=== PATIENT | male | born 1970 | race African-American/Black ===

== ENCOUNTER 2019-02-12 23:45 | Inpatient (IN) | payer OTHER ==
[~2019-02-12] VITALS: Ht 175.3 cm; Wt 90.1 kg
[2019-02-13] VITALS (13 sets, daily range): BP systolic 135–169; BP diastolic 67–97
[2019-02-13] MEDS ORDERED: hydrALAZINE INJ 20 MG/ML VIAL IV ONE (01:00)
--- NOTE | 2019-02-13 02:03 | REP ---
Clinical: Hypertension . Comparison: None . Findings: The mediastinum and cardiac silhouette are stable and within normal limits for portable technique. The lung gaviria are clear without acute consolidation, effusion, or pneumothorax. Skeletal structures are intact. Small flecks of metallic foreign body material noted uncertain etiology or significance. Impression: No acute cardiopulmonary process appreciated. Electronically Signed by Arun Serrano MD 02/13/2019 01:55 A
[2019-02-13] MEDS ORDERED: LABETALOL HCL 100 MG/20 ML VIAL IV STA ×2 (02:26→03:35)
[2019-02-13] MEDS ORDERED: LABETALOL 100 MG TAB PO ONE (02:30)
[2019-02-13 02:45] LABS: HEMATOCRIT 42.5 % (42.0-52.0); HEMOGLOBIN 14.2 g/dl (13.5-17.5); MEAN CORPUSCULAR HEMOGLOBIN 30.1 pg (27.0-33.0); MEAN CORPUSCULAR HGB CONC 33.4 g/dl (32.0-36.5); MEAN CORPUSCULAR VOLUME 90.2 fl (80.0-96.0); PLATELET COUNT, AUTOMATED 175 10^3/uL (150-450); RED BLOOD COUNT 4.71 10^6/uL (4.30-6.10); WHITE BLOOD COUNT 7.1 10^3/uL (4.0-10.0)
--- NOTE | 2019-02-13 02:55 | REPVR ---
PROCEDURE INFORMATION: Exam: CT Head Without Contrast Exam date and time: 02/13/2019 1:43 AM Clinical history: 49 years old, male; Pain; Headache not specified; Additional info: Hypertensive urgency TECHNIQUE: Imaging protocol: Computed tomography of the head without contrast. Radiation optimization: All CT scans at this facility use at least one of these dose optimization techniques: automated exposure control; mA and/or kV adjustment per patient size (includes targeted exams where dose is matched to clinical indication); or iterative reconstruction. COMPARISON: No relevant prior studies available. FINDINGS: Brain: Streaking artifact limits evaluation of the left cerebral hemisphere and left cerebellar lobe. Otherwise, there is no visualized acute intracranial hemorrhage or acute territorial type infarct. No intracranial mass effect. Midline shift: There is no midline shift. Ventricles: No ventriculomegaly. Bones/joints: The calvarium demonstrates no evidence for a depressed fracture. Sinuses: Mucosal thickening/effusions within scattered ethmoid air cells. There is an air-fluid level within the right sphenoid sinus. Mastoid air cells: No mastoid effusion. Soft tissues: Multiple metallic foreign bodies are identified within the left side of the scalp, left ear, left periauricular region, and soft tissues of the left upper neck posteriorly. IMPRESSION: 1. Streaking artifact limits evaluation of the left cerebral hemisphere and left cerebellar lobe. Otherwise, there is no visualized acute intracranial hemorrhage or acute territorial type infarct. 2. Multiple metallic foreign bodies are identified within the left side of the scalp, left ear, left periauricular region, and soft tissues of the left upper neck posteriorly. 3. Paranasal sinus disease. Electronically signed by: Winston Bai On 02/13/2019 02:55:44 AM
[2019-02-13 03:21] LABS: CK-MB VALUE MASS < 1.0 NG/ML (<3.6); CPK CREATINE PHOSPHOKINASE 303 U/L (39-308); MB/CK RELATIVE INDEX 0.33 (< OR =4); TROPONIN I < 0.02 NG/ML (< 0.10)
[2019-02-13] MEDS ORDERED: IBUPROFEN 600 MG TAB PO ONE (04:00)
[2019-02-13] MEDS ORDERED: ATEN50TA2 PO (04:17)
[2019-02-13] MEDS ORDERED: COSO1SOL3 OU (04:17)
[2019-02-13] MEDS ORDERED: AMLO10TA5 PO (04:17)
[2019-02-13] MEDS ORDERED: MELO15TA28 PO (04:17)
[2019-02-13] MEDS ORDERED: ASPIRIN 81 MG CHEW TABLET PO ONE (04:30)
[2019-02-13] MEDS ORDERED: ACETAMINOPHEN 650MG ER TAB (TYLENOL ARTHRITIS) PO PRN (04:30)
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
[2019-02-13 05:23] LABS: ALBUMIN 3.8 GM/DL (3.2-5.2); ALT/SGPT 20 U/L (12-78); BILIRUBIN,TOTAL 0.3 MG/DL (0.2-1.0); BLOOD UREA NITROGEN 11 MG/DL (7-18); CALCIUM LEVEL 8.3 MG/DL (8.5-10.1); CARBON DIOXIDE LEVEL 27 MEQ/L (21-32); CHLORIDE LEVEL 107 MEQ/L (98-107); CREATININE FOR GFR 1.26 MG/DL (0.70-1.30); GLOMERULAR FILTRATION RATE > 60.0 (>60); GLUCOSE, FASTING 89 MG/DL (70-100); POTASSIUM SERUM 3.3 MEQ/L (3.5-5.1); SODIUM LEVEL 142 MEQ/L (136-145); TOTAL PROTEIN 7.2 GM/DL (6.4-8.2); TROPONIN I < 0.02 NG/ML (< 0.10)
[2019-02-13] MEDS ORDERED: LABETALOL HCL 100 MG/20 ML VIAL IV PRN (05:45)
[2019-02-13] MEDS ORDERED: POTASSIUM CHLORIDE 10 MEQ SR TABLET PO ONE (08:00)
[2019-02-13] MEDS: ENOXAPARIN 40 MG/0.4 ML SYRINGE (J1650) SC SCH (08:07)
[2019-02-13] MEDS: amLODIPine 10 MG TAB PO SCH (08:08)
[2019-02-13] MEDS: ATENOLOL 50 MG TAB PO SCH ×2 (08:08→20:24)
[2019-02-13 08:29] LABS: CHOLESTEROL LEVEL 167 MG/DL (<200); CHOLESTEROL RISK RATIO 4.911 (<5); HDL CHOLESTEROL 34 MG/DL (>40); LDL CHOLESTEROL 104 MG/DL (<100); NON-HDL-C 133 MG/DL; TRIGLYCERIDES LEVEL 147 MG/DL (<150)
[2019-02-13 08:49] LABS: HEMOGLOBIN A1c 4.7 %
[2019-02-13] MEDS ORDERED: LISINOPRIL 5 MG TAB PO SCH (09:00)
[2019-02-13 09:38] LABS: CPK CREATINE PHOSPHOKINASE 242 U/L (39-308); MB/CK RELATIVE INDEX 0.41 (< OR =4); TROPONIN I < 0.02 NG/ML (< 0.10)
[2019-02-13] MEDS: COSOPT OCUMETER PLUS 10ML (DORZOLAMIDE/TIMOLOL) OU SCH ×2 (10:41→20:24)
[2019-02-14] VITALS (11 sets, daily range): BP systolic 92–172; BP diastolic 51–91
--- NOTE | 2019-02-14 00:02 | ECGEPIP ---
[facility] - ED Test Date: 2019-02-13 Pat Name: LULÚ ZAZUETA Department: Room: [place] [address] Gender: Male Licensed Massage Therapist: GUZMAN : 1970 Requested By: Ladarius Kumar Order Number: [id number] Reading MD: Ladarius Umana Measurements Intervals [place] Rate: 79 P: 63 GA: 170 QRS: -36 QRSD: 84 T: -18 QT: 394 QTc: 453 Interpretive Statements SINUS RHYTHM POSSIBLE LEFT ATRIAL ENLARGEMENT LEFT AXIS DEVIATION NO PRIORS FOR COMPARISON Electronically Signed on 02-14-2019 0:01:27 EDT by Ladarius Umana
[2019-02-14 05:51] LABS: HEMATOCRIT 40.3 % (42.0-52.0); HEMOGLOBIN 13.6 g/dl (13.5-17.5); MEAN CORPUSCULAR HGB CONC 33.7 g/dl (32.0-36.5); PLATELET COUNT, AUTOMATED 182 10^3/uL (150-450); RED BLOOD COUNT 4.53 10^6/uL (4.30-6.10)
[2019-02-14 06:07] LABS: BLOOD UREA NITROGEN 14 MG/DL (7-18); CALCIUM LEVEL 8.6 MG/DL (8.5-10.1); CARBON DIOXIDE LEVEL 28 MEQ/L (21-32); CHLORIDE LEVEL 111 MEQ/L (98-107); GLOMERULAR FILTRATION RATE > 60.0 (>60); GLUCOSE, FASTING 82 MG/DL (70-100); MAGNESIUM LEVEL 1.9 MG/DL (1.8-2.4); POTASSIUM SERUM 3.6 MEQ/L (3.5-5.1); SODIUM LEVEL 142 MEQ/L (136-145)
[2019-02-14] MEDS ORDERED: POTASSIUM CHLORIDE 10 MEQ SR TABLET PO ONE (08:00)
[2019-02-14] MEDS: ENOXAPARIN 40 MG/0.4 ML SYRINGE (J1650) SC SCH (08:30)
[2019-02-14] MEDS: ATENOLOL 50 MG TAB PO SCH ×2 (08:31→21:08)
[2019-02-14] MEDS: amLODIPine 10 MG TAB PO SCH (08:31)
[2019-02-14] MEDS: COSOPT OCUMETER PLUS 10ML (DORZOLAMIDE/TIMOLOL) OU SCH ×2 (08:32→21:08)
[2019-02-14] MEDS ORDERED: SLF 3 ML SYR IV PRN (13:15)
[2019-02-14] MEDS: SLF 3 ML SYR IV SCH ×2 (14:40→21:09)
--- NOTE | 2019-02-14 15:50 | IPNPDOC ---
Text Note Date of Service The patient was seen on 02/14/19. NOTE Subjective: Patient complains of mild headache 4 out of 10. He denies fever, chills, nausea, vomiting, shortness of breath, diarrhea or dysuria Objective: NAD HEENT: PERRLA, EOMI, no JVD CV: S1-S2 Chest: Clear to auscultation bilaterally Abdomen: Nontender, nondistended Extremities: No leg swelling no cyanosis Neuro: Nonfocal, cranial nerves from 2 through 12 intact Assessment and plan Patient is 49 years old male with past history of hypertension, glaucoma, chronic back pain presented to the hospital with hypertensive emergency Hypertensive emergency Resolved Blood pressure under control I discontinued lisinopril, in [place] bob inhibitors usually not effective. Chlorthalidone could be an option Chest pain Resolved Troponin was negative EKG did not show acute ischemic changes Glaucoma -Continue dorzolamide/timolol YESSENIA Creatinine increased today I discontinued lisinopril VS,Fishbone, I+O VS, Fishbone, I+O Laboratory Tests 02/14/19 05:30 Red Blood Count 4.53, Mean Corpuscular Volume 89.0, Mean Corpuscular Hemoglobin 30.0, Mean Corpuscular Hemoglobin Concent 33.7, Red Cell Distribution Width 12.9, Calcium Level 8.6 Vital Signs Date Time Temp Pulse Resp B/P (MAP) Pulse Ox O2 Delivery O2 Flow Rate FiO2 02/14/19 12:00 98.0 58 18 172/86 (114) 98 02/13/19 08:15 Room Air I&O- Last 24 Hours up to 6 AM 02/14/19 06:00 Intake Total 480 ml Output Total 1225 ml Balance -745 ml SELENA GRANDE DO Feb 14, 2019 15:50
[2019-02-15 04:00] VITALS: BP 125/64
[2019-02-15] MEDS: SLF 3 ML SYR IV SCH ×2 (05:56→14:28)
[2019-02-15 06:27] LABS: BLOOD UREA NITROGEN 16 MG/DL (7-18); CALCIUM LEVEL 8.8 MG/DL (8.5-10.1); CARBON DIOXIDE LEVEL 28 MEQ/L (21-32); CHLORIDE LEVEL 109 MEQ/L (98-107); GLOMERULAR FILTRATION RATE > 60.0 (>60); GLUCOSE, FASTING 82 MG/DL (70-100); MAGNESIUM LEVEL 2.1 MG/DL (1.8-2.4); POTASSIUM SERUM 3.6 MEQ/L (3.5-5.1); SODIUM LEVEL 142 MEQ/L (136-145)
[2019-02-15 08:00] VITALS: BP 158/84
[2019-02-15] MEDS ORDERED: POTASSIUM CHLORIDE 10 MEQ SR TABLET PO ONE (08:00)
[2019-02-15 08:48] VITALS: BP 158/64
[2019-02-15] MEDS: ATENOLOL 50 MG TAB PO SCH (08:48)
[2019-02-15] MEDS: amLODIPine 10 MG TAB PO SCH (08:48)
[2019-02-15] MEDS: ENOXAPARIN 40 MG/0.4 ML SYRINGE (J1650) SC SCH (08:48)
[2019-02-15] MEDS: COSOPT OCUMETER PLUS 10ML (DORZOLAMIDE/TIMOLOL) OU SCH (08:48)
[2019-02-15] MEDS ORDERED: CHLORTHALIDONE 25 MG TAB PO SCH (09:00)
[2019-02-15 12:00] VITALS: BP 140/69
[2019-02-15] MEDS ORDERED: ACETAMINOPHEN 650MG ER TAB (TYLENOL ARTHRITIS) PO PRN (12:45)
[2019-02-15 13:32] LABS: BLOOD UREA NITROGEN 15 MG/DL (7-18); CALCIUM LEVEL 8.8 MG/DL (8.5-10.1); CARBON DIOXIDE LEVEL 28 MEQ/L (21-32); CHLORIDE LEVEL 108 MEQ/L (98-107); CREATININE FOR GFR 1.51 MG/DL (0.70-1.30); GLOMERULAR FILTRATION RATE > 60.0 (>60); GLUCOSE, FASTING 78 MG/DL (70-100); POTASSIUM SERUM 4.2 MEQ/L (3.5-5.1); SODIUM LEVEL 140 MEQ/L (136-145)
[2019-02-15] MEDS ORDERED: CHLO25TA PO ×2 (14:42→15:14)
[2019-02-15] MEDS ORDERED: ACET1TAB37 PO (14:42)
--- NOTE | 2019-02-15 16:38 | DS.PDOC ---
Discharge Summary General Date of Admission Feb 13, 2019 at 03:51 Date of Discharge 02/16/19 Discharge Summary PROCEDURES PERFORMED DURING STAY: None ADMITTING DIAGNOSES: DISCHARGE DIAGNOSES: 1. . COMPLICATIONS/CHIEF COMPLAINT: Hypertensive Urgency. HISTORY OF PRESENT ILLNESS: Patient is a 59-year-old -Martiniqu[place] male, resident of [facility], past medical history significant for hypertension and glaucoma, who presents to the emergency department with uncontrolled hypertension and headache. Patient states that he has had a headache intermittently over the last 2 weeks. He states that his headache acutely worsened 4 days ago leading him to present to the [facility]. During follow-up this evening, patient was found have elevated blood pressures of 175/107 mmHg. Patient was then transferred to the emergency department via EMS for further evaluation. Patient does carry a history of hypertension, diagnosed in 2006 while incarcerated. Patient states that he was started on a number of medications, though he is unable to recall their names. He states that when he was transferred to [facility], patient was reportedly st arted on 10 mg of amlodipine daily and atenolol 50 mg daily, recently increased to twice daily. Correction[employer] officers she had some doubt on whether or not patient has been compliant with his medication. Upon presentation, patient was found to be afebrile, pulse 77, blood pressure of 192/105, respiratory rate 18 and 02 sat of 98% on room air. Patient described his headache as a generalized dull ache, rated 6 out of 10. CBC was negative for any abnormality. Cardiac marker panels and TSH labs were negative. Patient had a chest x-ray and head CT performed which were both negative for any acute pa thology. EKG demonstrated normal sinus rhythm. Patient was given a one-time dose of hydralazine 10 mg which failed to improve his pressure. He was subsequently given 20 mg of labetalol IV and 100 mg labetalol orally. A subsequent dose of labetalol 20 mg IV was also given without much improvement in his pressure. Ibuprofen 600 given for his headache HOSPITAL COURSE: During hospital stay following issue addressed Hypertensive emergency Resolved on labetalol IV. Patient received amlodipine and atenolol I discontinued lisinopril, in -[place] population bob inhibitors usually not effective. Chlorthalidone initiated Chest pain Resolved Troponin was negative EKG did not show acute ischemic changes Glaucoma -Continue dorzolamide/timolol YESSENIA Creatinine increased meloxicam and ibuprofen I discontinued lisinopril Creatinine improved on the day of discharge DISCHARGE MEDICATIONS: Please see below. ALLERGIES: Please see below. PHYSICAL EXAMINATION ON DISCHARGE: VITAL SIGNS: Please see below. Objective: NAD HEENT: PERRLA, EOMI, no JVD CV: S1-S2 Chest: Clear to auscultation bilaterally Abdomen: Nontender, nondistended Extremities: No leg swelling no cyanosis Neuro: Nonfocal, cranial nerves from 2 through 12 intact LABORATORY DATA: Please see below. IMAGING: PROCEDURE INFORMATION: Exam: CT Head Without Contrast Exam date and time: 02/13/2019 1:43 AM Clinical history: 49 years old, male; Pain; Headache not specified; Additional info: Hypertensive urgency TECHNIQUE: Imaging protocol: Computed tomography of the head without contrast. Radiation optimization: All CT scans at this facility use at least one of these dose optimization techniques: automated exposure control; mA and/or kV adjustment per patient size (includes targeted exams where dose is matched to clinical indication); or iterative reconstruction. COMPARISON: No relevant prior studies available. FINDINGS: Brain: Streaking artifact limits evaluation of the left cerebral hemisphere and left cerebellar lobe. Otherwise, there is no visualized acute intracranial hemorrhage or acute territorial type infarct. No intracranial mass effect. Midline shift: There is no midline shift. Ventricles: No ventriculomegaly. Bones/joints: The calvarium demonstrates no evidence for a depressed fracture. Sinuses: Mucosal thickening/effusions within scattered ethmoid air cells. There is an air-fluid level within the right sphenoid sinus. Mastoid air cells: No mastoid effusion. Soft tissues: Multiple metallic foreign bodies are identified within the left side of the scalp, left ear, left periauricular region, and soft tissues of the left upper neck posteriorly. IMPRESSION: 1. Streaking artifact limits evaluation of the left cerebral hemisphere and left cerebellar lobe. Otherwise, there is no visualized acute intracranial hemorrhage or acute territorial type infarct. 2. Multiple metallic foreign bodies are identified within the left side of the scalp, left ear, left periauricular region, and soft tissues of the left upper neck posteriorly. 3. Paranasal sinus disease. PROGNOSIS: Favorable ACTIVITY: As tolerated. DIET: Cardiac DISCHARGE PLAN: Continue take prescribed medications DISPOSITION: . Home DISCHARGE INSTRUCTIONS: 1. Stop taking meloxicam ITEMS TO FOLLOWUP ON ON OUTPATIENT: 1. . DISCHARGE CONDITION: Stable TIME SPENT ON DISCHARGE: Greater than 20 minutes. Vital Signs/I&Os Vital Signs Date Time Temp Pulse Resp B/P (MAP) Pulse Ox O2 Delivery O2 Flow Rate FiO2 02/15/19 12:00 97.8 60 17 140/69 (92) 98 02/13/19 08:15 Room Air I&O- Last 24 Hours up to 6 AM 02/15/19 06:00 Intake Total 600 ml Output Total 0 ml Balance 600 ml Laboratory Data Labs 24H Laboratory Tests 2 02/15/19 05:39: Anion Gap 5L, Glomerular Filtration Rate > 60.0, Blood Urea Nitrogen 16, Creatinine 1.60H, Sodium Level 142, Potassium Level 3.6, Chloride Level 109H, Carbon Dioxide Level 28, Calcium Level 8.8, Magnesium Level 2.1 02/15/19 12:49: Anion Gap 4L, Glomerular Filtration Rate > 60.0, Blood Urea Nitrogen 15, Creatinine 1.51H, Sodium Level 140, Potassium Level 4.2, Chloride Level 108H, Carbon Dioxide Level 28, Calcium Level 8.8 CBC/BMP Laboratory Tests 02/15/19 05:39 Calcium Level 8.8 02/15/19 12:49 Calcium Level 8.8 Discharge Medications Scheduled Amlodipine Besylate (Amlodipine Besylate) 10 Mg Tablet, 10 MG PO DAILY, (Reported) Atenolol (Atenolol) 50 Mg Tablet, 50 MG PO BID, (Reported) Chlorthalidone (Chlorthalidone) 25 Mg Tablet, 25 MG PO BID Dorzolamide HCl/Timolol Maleat (Cosopt Eye Drops) 10 Ml Drops, 1 DROP OU BID, (Reported) Scheduled PRN Acetaminophen (Acetaminophen ER) 650 Mg Tablet.er, 650 MG PO BIDP PRN for PAIN OR FEVER Allergies Coded Allergies: No Known Allergies (Unverified , 02/13/19) SELENA GRANDE DO Feb 15, 2019 16:37
== END 2019-02-15 17:55 | disposition home or self-care (01) | DRG 199 ==
LOC: M ED 23:45 → M ED INP 02-13 03:51 → M ICU 02-13 09:03 → M PCU 02-14 02:14
PROVIDERS: ADMIT Internal Medicine; ATTEND Internal Medicine
DX: I16.0 Hypertensive urgency (principal); H40.9 Unspecified glaucoma; Z79.899 Other long term (current) drug therapy; M54.5 Low back pain; R07.9 Chest pain, unspecified; I10 Essential (primary) hypertension